=== PATIENT | female | born 1995 | race Caucasian/White ===

== ENCOUNTER → 2018-06-09 15:14 | Outpatient (CLI) | payer OTHER, MEDICAID ==
[2018-06-09 16:07] LABS: APPEARANCE CLEAR (CLEAR); BILIRUBIN NEGATIVE (NEGATIVE); COLOR YELLOW (YELLOW); GLUCOSE NEGATIVE (NEGATIVE); KETONE NEGATIVE (NEGATIVE); NITRITE NEGATIVE (NEGATIVE); PROTEIN NEGATIVE (NEGATIVE); SPECIFIC GRAVITY 1.025 (1.005-1.020); UROBILINOGEN NORMAL (NORMAL)
[2018-06-09 16:08] LABS: BACTERIA FEW /hpf (NONE SEEN); EPITHELIAL CELLS 0-5 /hpf (0-5); RED CELLS - URINE 0-5 /hpf (0-5); WHITE CELLS - URINE 0-5 /hpf (0-5)
== END | disposition home or self-care (01) ==
LOC: D.LDO 15:14
PROVIDERS: Obstetrics & Gynecology
DX: O26.852 Spotting complicating pregnancy, second trimester (principal); Z3A.17 17 weeks gestation of pregnancy

== ENCOUNTER 2018-11-04 15:26 | Inpatient (IN) | payer OTHER, MEDICAID ==
[~2018-11-04] VITALS: Ht 175.3 cm; Wt 127.0 kg
[2018-11-07] VITALS (10 sets, daily range): BP systolic 101–125; BP diastolic 55–66; Ht 175.3 cm; Wt 127.0 kg
--- NOTE | 2018-11-07 13:00 | NUR ---
DR ENGLISH GIVES VERBAL ORDER TO TRANSFUSE 2 UNITS PRBC AND HAVE 2 UNIT PRBC ON HOLD.
[2018-11-07 13:27] LABS: HEMATOCRIT 31.8 % (36.0-48.0); HEMOGLOBIN 9.8 g/dL (12-16); MCHC 30.8 g/dL (31.0-37.0); MCV 74.5 fL (80.0-100.0); MEAN PLATELET VOLUME 10.5 fL (7.4-10.4); RBC 4.27 10x6/uL (4.00-5.40); RDW 17.2 % (11.5-14.5); WBC 10.2 10x3/uL (4.8-10.8)
--- NOTE | 2018-11-07 18:18 | NUR ---
FUNDUS IS FIRM, MIDLINE TWO FINGER WIDTHS BELOW THE UMBILICUS. APRIL PAD IN PLACE. NO CLOTS PRESENT. WILL CONTINUE TO MONITOR.
--- NOTE | 2018-11-07 18:41 | NUR ---
PT RCVD VIA BED TO ROOM 1278. PT AAOx3, RATING PAIN 6/10. PT ON ROOM AIR. IV INFUSING PITOCIN IN NS ORDERED TO RIGHT WRIST PIV AT 125ML/H. FF, ML, U/1. SMALL RUBRA LOCHIA NOTED TO PERIPAD. DRESSING OVER LT INCISION HAS SMALL AMOUNT RED DRAINAGE NOTED IN CENTER OF DRESSING. NO ACTIVE SATURATING OF DRESSING SEEN. ICE PACK TO INCISION. ARIAS CATH DRAINING CLEAR YELLOW URINE TO BEDSIDE DRAINAGE, 60ML NOTED IN UROMETER. SCD'S ON LE BILAT, NEED PUMP. WILL LOCATE SCD PUMP AND OBTAIN PAIN MED ORDERS.
--- NOTE | 2018-11-07 18:55 | NUR ---
DR ENGLISH PHONED AND ORDERS VD.
--- NOTE | 2018-11-07 19:11 | NUR ---
PT ADMIN TORADOL ORDERED FOR PAIN, PT RATING PAIN 6/10. WILL SETUP APARTMENT COORDINATOR.
--- NOTE | 2018-11-07 19:17 | NUR ---
CURATOR OF EDUCATION SETUP ORDERED. SEE EMAR FOR DOC.
--- NOTE | 2018-11-07 19:19 | NUR ---
STATE COMPTROLLER ALARMING STATE COMPTROLLER CABLE DISCONNECTED. STATE COMPTROLLER OFF AND TUBING CLAMPED. INVENTORY AUDITOR NOTIFIED OF NEED FOR NEW STATE COMPTROLLER PUMP.
--- NOTE | 2018-11-07 19:32 | NUR ---
BEDSIDE SHIFT REPORT TO [facility]. WILL PROVIDE PERICARE AND BED LINEN CHANGE WITH [facility].
--- NOTE | 2018-11-07 19:32 | NUR ---
BEDSIDE REPORT RECEIVED. ASSESSMENT COMPLETED. NOTED LARGE AMOUNT LOCHIA WITH LARGE CLOTS TO PERINEUM, LINENS CHANGED, ARIAS/PERICARE PROVIDED, POSITIONED TO COMFORT. SCDS' TO B LE, IV TO LEFT WRIST AND RIGHT FA BENIGN TO INSPECTION. TOLERATING CLEAR LIQUIDS, RESP EVEN AND UNLABORED, YARD SPECIALIST INITIATED WITH PT DEMONSTRATING USE OF BUTTON FOR PAIN CONTROL. PT REQUESTING DISCONTINUING OF LEFT WRIST SALINE LOCK DUE TO DISCOMFORT SECONDARY TO LOCATION, REVIEWED NEED FOR SECOND IV SITE AND RECENT BLOOD ADMINISTRATION WITH FOLLOW UP LAB DRAW THIS PM. PT STATES UNDERSTANDING. REVIEWED PLAN OF CARE, ORDERS, AND GOALS FOR THIS PM. IN ROOM, BONDIGN NOTED, FAMILY PRESENT. ARIAS CATHETER TO GRAVITY DRAINAGE WITH CONCENTRATED YELLOW URINE NOTED IN BAG. CALL LIGHT IN EASY REACH DENIES OTHER NEEDS AT THIS TIME. CONTINUE TO MONITOR.
--- NOTE | 2018-11-07 19:35 | NUR ---
NEW ICE PACK TO ABD INCISION. PT DENIES NEEDS AT THIS TIME. SRUx2, CL IN REACH. FAMILY AT BEDSIDE.
--- NOTE | 2018-11-07 20:10 | NUR ---
FUNDUS FIRM AT U/2 AND MIDLINE, NO FURTHER CLOTS NOTED. PLAYERS ASSISTANT ALARMING, PLAYERS ASSISTANT CHANGED OUT WITH ASSIST OF Dandy LANDAVERDE RN. PT DEMONSTRATES USE AND FUNCTIONING AT THIS TIME.
[2018-11-07 20:21] LABS: BASOPHILS 0.2 % (0-2); EOSINOPHILS 0.6 % (0-7); HEMATOCRIT 31.7 % (36.0-48.0); IMMATURE GRANULOCYTES 0.4 % (0-5); MCH 23.8 pg (26.0-34.0); MCHC 31.5 g/dL (31.0-37.0); MCV 75.3 fL (80.0-100.0); MEAN PLATELET VOLUME 10.6 fL (7.4-10.4); NEUTROPHILS 77.8 % (40-80); PLATELET COUNT 232 10x3/uL (130-400); RBC 4.21 10x6/uL (4.00-5.40); RDW 17.1 % (11.5-14.5)
--- NOTE | 2018-11-07 21:20 | NUR ---
ROUNDS COMPLETED, RESP EVEN AND UNLABORED, DENIES NEEDS OR CONCERNS AT THIS TIME, FUNDUS FIRM AT U/2, JONY MARIA MODERATE AMOUNT. CALL LIGHT IN EASY REACH.
--- NOTE | 2018-11-07 23:01 | NUR ---
ROUNDS COMPLETED, VSS. AFEBRILE. PT RESP EVEN AND UNLABORED, REPORTS PAIN LEVEL OF 4/10 AT THIS TIME, LUNGS CTAB, HEART RRR WITHOUT MURMUR, ABD SOFT, FUNDUS FIRM AT U/2 AND MIDLINE, LOCHIA RUBRA MODERATE AMOUNT, PERIPAD PLACED, ICE PACK OVERLAY IN PLACE TO LOW TRANSVERSE INCISION, OCCLUSIVE DRESSING INTACT WITH SCANT OLD DRAINAGE NOTED, NO NEW DRAINAGE SINCE SHIFT ASSESSMENT. ARIAS CATHETER IN PLACE, ARIAS CARE/PERICARE COMPLETED. ORTIZ FREELY, SCDS INTACT B LE AND FUNCTIONING, PEDAL PULSES 2+/= B LE. SKIN WARM AND DRY, CALL LIGHT AND CATH LAB MANAGER BUTTON WITHIN EASY REACH OF PT, PT SPOUSE AT BS AND SUPPORTIVE. DENIES FURTHER NEEDS AT THIS TIME, WILL MONITOR.
--- NOTE | 2018-11-07 23:55 | NUR ---
1000ML BAG NS WITH 20 UNITS PITOCIN HUNG AND INFUSING AT 125ML/HR PER IVAC PUMP TO RIGHT FOREARM PIV SITE WITHOUT DIFFICULTY. ICE PACK OVERLAY REPLACED TO INCISIONAL SITE, CUP OF [facility] PROVIDED UPON REQUEST, SIGNIFICANT OTHER AT BS WITH . NAD NOTED, DENIES OTHER NEEDS OR CONCERNS.
--- NOTE | 2018-11-08 01:46 | NUR ---
PT C/O LEFT WRIST DISCOMFORT TO SALINE LOCK, REQUESTS REMOVAL AND SAME PROVIDED, PRESSURE DRESSING APPLIED AND SECURED WITH TAPE FOLLOWING REMOVAL OF IV CATHETER, TOLERATES PROCEDURE WELL. RATES PAIN 4/10 ON NUMERIC PAIN SCALE, ENCOURAGED TO USE FINANCE ASSOCIATE BUTTON NEEDED. STATES UNDERSTANDNIG. CONTINUE TO MONITOR.
[2018-11-08 02:55] VITALS: BP 129/77
--- NOTE | 2018-11-08 03:00 | NUR ---
VSS, AFEBRILE, PT WITH INFANT TO LEFT BREAST FOR FEEDING. PERICARE/ARIAS CARE PROVIDED, PERSONAL ITEMS PLACED WITHIN EASY REACH OF PT. RESP EVEN AND UNLABORED, DENIES NEEDS OR CONCERNS AT THIS TIME. CONTINUE TO MONITOR. CALL LIGHT AND SAP BW DEVELOPER IN EASY REACH. PO FLUIDS ENCOURAGED.
--- NOTE | 2018-11-08 05:32 | NUR ---
ROUNDS COMPLETED, PT RESTING WITH EYES CLOSED ON ENTRY TO ROOM, LIGHTS DIMMED PER REQUEST, RESP EVEN AND UNLABORED, CALL LIGHT IN EASY REACH. CONTINUE TO MONITOR.
--- NOTE | 2018-11-08 06:40 | NUR ---
ROUNDS COMPLETED, PT RESP EVEN AND UNLABORED, SWADDLED AND PLACED INTO ROLLING CRIB ADJACENT TO PT BED PER PT REQUEST. PERICARE/ARIAS CARE PROVIDED. CUP OF ICE WATER PROVIDED UPON REQUEST. CALL LIGHT AND LINEN ROOM ATTENDANT BUTTON WITHIN EASY REACH OF PT. CONTINUE TO MONITOR.
--- NOTE | 2018-11-08 07:05 | NUR ---
REPORT GIVEN TO ONCOMING SHIFT STAFF.
--- NOTE | 2018-11-08 07:45 | NUR ---
DR ENGLISH CALLED ABOUT PT DESIRE TO GET UP AND WALKING, ORDERS RECEIVED TO D/C MOTTLER MACHINE FEEDER, SALINE LOCK IV, REMOVE ARIAS AND MAY ADVANCE DIET.
[2018-11-08 08:15] LABS: RAPID PLASMA REAGIN Non Reactive (Non Reactive)
--- NOTE | 2018-11-08 08:30 | NUR ---
PT FEEDING INFANT AND THAN STATES SHE IS GOING TO EAT HER BREAKFAST, WILL CALL WHEN FINISHED.
[2018-11-08 09:00] VITALS: BP 115/58
--- NOTE | 2018-11-08 10:00 | NUR ---
PT CALLS FOR NURSE, THIS RN TO ROOM. RATES PAIN AT 5/10, MEDS GIVEN SCANNED TO EMAR.
--- NOTE | 2018-11-08 10:15 | NUR ---
ARIAS D/C WITH CATH INTACT, TOTAL OF 600ML OUTPUT NOTED. IV SALINE LOCKED. PT ABLE TO MOVE SELF TO SITTING UP 0N SIDE OF THE BED WITH NO COMPLAINTS OF DIZZINESS OR NAUSEA. AMB TO BATHROOM PER SELF BUT UNABLE TO VOID AT THIS TIME, APRIL CARE PER SELF WITH WARM WET CLOTHS. GOWN CHANGED, MESH BRIEFS AND APRIL PADS ON. BED LINENS CHANGED WHILE PT IN BATHROOM. BACK TO BED AND DENIES ANY NEEDS AT THIS TIME. SIDE RAILS UP X 2 WITH CALL LIGHT IN REACH.
--- NOTE | 2018-11-08 10:21 | NUR ---
Fredy Hope 11/08/18 CLC in room for assessment. Patient in bathroom at this time. Ej Bryant, CLC
--- NOTE | 2018-11-08 11:10 | NUR ---
PAIN REASSESSMENT, RATES PAIN AT 2/10 AT THIS TIME, REQUEST THAT LIGHTS BE TURNED DOWN AT THIS TIME. IN CRIB AT BEDSIDE. SIDE RAILS UP X 2 WITH CALL LIGHT IN REACH.
--- NOTE | 2018-11-08 15:33 | NUR ---
PAIN MED GIVEN SCANNED TO EMAR. PT RATES AT 5/10. C/O ITCHING AND TENDERNESS AT SALINE LOCK, NO SWELLING OR REDDNESS NOTED BUT SALINE LOCK REMOVED INTACT. TO NURSERY VIA CRIB AND PT AMB AROUND UNIT WITH SPOUSE.
--- NOTE | 2018-11-08 16:18 | NUR ---
PT AND SPOUSE BACK TO ROOM. RATES PAIN AT 2/10 AND DENIES ANY NEEDS AT THIS TIME.
--- NOTE | 2018-11-08 18:00 | NUR ---
DENIES PAIN OR NEEDS. IN CRIB AT BEDSIDE WITH FAMILY PRESENT.
--- NOTE | 2018-11-08 19:15 | NUR ---
PATIENT REPORT RECEIVED FROM [facility] EMANUEL TO ASSUME PATIENT CARE.
[2018-11-08 20:00] VITALS: BP 130/60
--- NOTE | 2018-11-08 20:00 | NUR ---
SHIFT ASSESSMENT COMPLETED AT THIS TIME, SEE EMAR
--- NOTE | 2018-11-08 20:16 | NUR ---
SIMETHICONE ADMINISTERED PER MD ORDERS FOR GAS.
--- NOTE | 2018-11-08 20:23 | NUR ---
ADMINISTERED PAIN MEDICATION PER MD ORDERS AND PT REQUEST. SEE EMAR
--- NOTE | 2018-11-08 21:30 | NUR ---
VISITORS TO BEDSIDE
--- NOTE | 2018-11-08 22:15 | NUR ---
PATIENT SITTING ON THE SIDE OF THE BED VISITING WITH FAMILY AND FRIENDS, DENIES PAIN OR NEEDS AT THIS TIME. REMAINS AT BEDSIDE IN FAMILY MEMBERS ARMS WITH NO DISTRESS NOTED. WILL CONTINUE TO MONITOR.
--- NOTE | 2018-11-08 23:02 | NUR ---
motrin 600mg administered po at this time per md orders and pt request. see emar
--- NOTE | 2018-11-08 23:47 | NUR ---
PATIENTS SIGNIFICANT OTHER OFFERING CANDY OR SNACKS AT THIS TIME. STATES THAT HE IS GOING TO BRING THE BABY TO THE NURSERY AND THEY ARE GOING TO GET SOME SLEEP. ENCOURAGED TO CALL WITH ANY NEEDS
--- NOTE | 2018-11-09 00:38 | NUR ---
IN TO BRING PATIENT PAIN MEDICINE AND SIMETHICONE, PT HAD REQUESTED THAT WHEN IT WAS TIME SHE WANTED ME TO BRING IT. PT SLEEPING AT THIS TIME, RESPIRATIONS EVEN AND NON LABORED, NO DISTRESS NOTED. WILL RETURN THE MEDICATIONS AND WAIT FOR HER TO CALL OUT WHEN SHE AWAKENS.
--- NOTE | 2018-11-09 02:30 | NUR ---
PATIENT RESTING QUIETLY WITH EYES CLOSED, RESPIRATIONS EVEN AND NON LABORED, NO DISTRESS NOTED. BED REMAINS LOCKED IN LOW POSITION, SIDE RAILS UPX2, CALL PIRES AND TRAY TABLE IN REACH. WILL CONTINUE TO MONITOR
--- NOTE | 2018-11-09 04:30 | NUR ---
PATIENT CONTINUES TO REST WITH EYES CLOSED AND EVEN RESPIRATIONS. NO DISTRESS NOTED
--- NOTE | 2018-11-09 05:38 | NUR ---
PATIENT CALLED OUT EMS DRIVER PIRES FOR PAIN MEDICATION. MOTRIN 600MG PO AND NORCO 10/325MG PO PER REQUEST. ICE WATER, MAX CRACKERS AND PEANUT BUTTER PROVIDED. PT DENIES OTHER NEEDS, WILL CONTINUE TO MONITOR
--- NOTE | 2018-11-09 07:45 | NUR ---
AM ASSESSMENT COMPLETED CHARTED ON FLOWSHEET. PT DENIES PAIN OR DISCOMFORT AT THIS TIME. FUNDUS FIRM AT U/U WITH LIGHT BLEEDING NOTED. RATES PAIN AT 3/10 AND DENIES NEEDS AT THIS TIME.
--- NOTE | 2018-11-09 09:00 | NUR ---
CALLED TO ROOM, PT QUESTIONS ABOUT WHEN DISCHARGE WOULD OCCUR. ORDERS VERIFIED AND PT STATES UNDERSTANDING THAT PAPERWORK WOULD BE PRINTED AND BROUGHT IN FOR HER TO SIGN. ALSO REQUEST PAIN MED WHEN IT WAS TIME.
[2018-11-09] MEDS ORDERED: HYDROCODON-ACE1 EA10 PO (09:27)
[2018-11-09] MEDS ORDERED: IBUPROFEN600 MG PO (09:28)
--- NOTE | 2018-11-09 09:44 | NUR ---
Fredy Hope 11/09/[birth year] S: Patient states she stopped breastfeed last night because she wasn't making enough milk for baby. Verbally declines help with or wanting to breastfeed. Patient didn't response to reason of why she feels like she wasn't making enough milk for baby. Verbally agrees to listen to ideas about when she goes home. O: Patient sitting up in bed, family member at beside, infant in crib sleeping. Asked how are things going with , how can I help? Validated patients concerns and asked why does she feel like she isn't making enough? If you decide you would like to breastfeed when you go home I'll be happy to give you some tips if you would like to hear them. Explained it is normal for a breastfed to not latch immediately. Some babies take several moments to actually latch. is a learned experience for both mother and infant. takes time, practice, and patience. Explained feeding cues, supply and demand, and breastmilk composition. Your body is capable of making exactly what infant needs as long as baby is able to be placed to the breast for every feeding. Explained breastmilk composition. We respect and support you decision on how you would like to feed infant. If you needed any help with or have any questions, please let the staff know. A: Patient stopped last night because she wasn't making enough milk for baby. P: Patient will follow up with nursery staff for any related questions or concerns. Ej Bryant, CLC
--- NOTE | 2018-11-09 09:48 | NUR ---
PAIN MED GIVEN FOR PAIN THAT SHE RATES AT 7/10, PAIN MEDS GIVEN CHARTED. VERBAL AND WRITTEN DISCHARGE INSTRUCTIONS GONE OVER WITH PT, SHE IS ALSO PROVIDED WITH WRITTEN SCRIPT FOR NORCO 10/325MG AND MOTRIN 600MG. NURSERY NOTIFIED THAT PT D/C COMPLETED, PT WILL CALL AFTER INFANT DISCHARGE IS DONE.
--- NOTE | 2018-11-09 10:45 | NUR ---
PT TAKEN OUT VIA WHEELCHAIR WITH INFANT SECURED IN TO CARRIER. HOME WITH SPOUSE BY PRIVATE CAR.
== END 2018-11-09 10:45 | disposition home or self-care (01) | DRG 788 ==
LOC: D.LD 11-07 11:20 → D.SDCHOLD 11-07 13:30 → D.LD 11-09 10:45
PROVIDERS: ADMIT Obstetrics & Gynecology; ATTEND Obstetrics & Gynecology
PROC: 10D00Z1 Extraction of Products of Conception, Low, Open Approach (ICD-10-PCS; principal; 2018-11-07 13:30)
DX: O34.211 Maternal care for low transverse scar from previous cesarean delivery (principal); Z3A.39 39 weeks gestation of pregnancy; Z37.0 Single live birth